=== PATIENT | female | born 1975 ===

== ENCOUNTER 2018-06-09 09:28 | Emergency (ER) | payer OTHER ==
[~2018-06-09] VITALS: Ht 162.6 cm; Wt 796.1 kg
[~2018-06-09 09:28] MED LIST: KLONOPIN0.5 MG/TAB PO; KLONOPIN1 MG/TAB; PROSOM2 MG PO; PROZAC10 MG PO; RESTORIL30 MG; TEGRETOL200 MG; VISTARIL50 MG PO; ZOLOFT25 MG
[2018-06-09] MEDS ORDERED: INTESTINEX680 M1 PO (16:18)
[2018-06-09] MEDS ORDERED: PROTONIX40 MG PO (16:18)
[2018-06-09] MEDS ORDERED: LEVAQUIN500 MG PO (16:18)
== END 2018-06-09 17:55 | disposition home or self-care (01) ==
LOC: ER 09:28
DX: K52.9 Noninfective gastroenteritis and colitis, unspecified (principal); K29.70 Gastritis, unspecified, without bleeding; N39.0 Urinary tract infection, site not specified

== ENCOUNTER 2018-07-06 04:57 | Emergency (ER) | payer OTHER ==
[~2018-07-06] VITALS: Ht 157.5 cm; Wt 91.6 kg
[~2018-07-06 04:57] MED LIST changes: +INTESTINEX680 M1 PO; +LEVAQUIN500 MG PO; +PROTONIX40 MG PO
[2018-07-06] MEDS ORDERED: ZANTAC300 MG (05:13)
[2018-07-06] MEDS ORDERED: CARAFATE1 GM/10 ML (05:14)
[2018-07-06] MEDS ORDERED: LAMICTAL XR200 MG (05:14)
== END 2018-07-06 17:00 | disposition home or self-care (01) ==
LOC: ER 04:57
DX: J45.998 Other asthma (principal); K52.89 Other specified noninfective gastroenteritis and colitis